=== PATIENT | female | born 1975 | race Caucasian/White ===

== ENCOUNTER 2017-06-30 18:38 | Emergency (ER) | payer OTHER ==
[~2017-06-30] VITALS: Ht 157.5 cm; Wt 76.5 kg
[2017-06-30 21:57] VITALS: BP 120/74
== END 2017-06-30 21:58 | disposition home or self-care (01) ==
LOC: EME 18:38
DX: S16.1XXA Strain of muscle, fascia and tendon at neck level, initial encounter (principal); V89.2XXA Person injured in unspecified motor-vehicle accident, traffic, initial encounter; Y92.410 Unspecified street and highway as the place of occurrence of the external cause; Z88.0 Allergy status to penicillin
CPT/HCPCS: 71010; 72125; 99281; 99284